=== PATIENT | male | born 1950 | race Caucasian/White ===

== ENCOUNTER 2017-04-21 09:18 | Emergency (ER) | payer OTHER ==
[~2017-04-21] VITALS: Ht 167.6 cm; Wt 119.7 kg
[2017-04-21 09:22] VITALS: BP 152/93
[2017-04-21] MEDS ORDERED: ALPR0.5T2 PO (09:30)
[2017-04-21] MEDS ORDERED: TRAZ-286 PO (09:30)
[2017-04-21] MEDS ORDERED: ACET-2869 PO (09:30)
--- NOTE | 2017-04-21 09:50 | NUR ---
66m bib self presents with medication refill for xanax and norco. Pt sts he ran out of medication approx 2-3 days. Pt sts he has been taking xanax and norco for the past 7 years. Pt sts he has a doctors apt on 04/24/17. Pt reports that he has 7/10 constant generalized body pain. Pt denies SI or HI. Pt sts he is feeling anxious and has been "crying all night". Pt is aox4 with steady gait. RR are even and unlabored. Er md gardner by bedside examining pt. NAD. Awaiting discharge. All needs met at this time.
[2017-04-21 10:02] VITALS: BP 152/93
--- NOTE | 2017-04-21 10:02 | NUR ---
Patient discharged with v/s stable. Written and verbal after care instructions given and explained. Patient alert, oriented and verbalized understanding of instructions. Ambulatory with steady gait. All questions addressed prior to discharge. ID band removed. Patient advised to follow up with PMD. Rx of xanax and norco given. Patient educated on indication of medication including possible reaction and side effects. Opportunity to ask questions provided and answered.
== END 2017-04-21 10:02 | disposition home or self-care (01) ==
LOC: MED 09:18
DX: Z76.0 Encounter for issue of repeat prescription (principal); F41.9 Anxiety disorder, unspecified; M79.1 Myalgia; Z90.49 Acquired absence of other specified parts of digestive tract; Z79.899 Other long term (current) drug therapy
CPT/HCPCS: 99283

== ENCOUNTER 2017-11-16 08:36 | Emergency (ER) | payer OTHER ==
[~2017-11-16] VITALS: Ht 167.6 cm; Wt 117.9 kg
[~2017-11-16 08:36] MED LIST: ACET-2869 PO; ALPR0.5T2 PO; TRAZ-343 PO
--- NOTE | 2017-11-16 08:36 | NUR ---
Patient BIBA BLS, transferred to bed 10. RN evaluating patient at bedside.
[2017-11-16 08:50] VITALS: BP 142/88
--- NOTE | 2017-11-16 08:56 | NUR ---
67 YO M BIBA W/ C/O SEVERE PAIN / THAT IS BURNING AND RADIATES FROM HIS BILATERAL LOWER BACK TO HIS RIGHT BUTTOCK, RIGHT CALF, AND RIGHT FOOT/TOES. PT REPORTS THIS PAIN IS FROM HIS FIBROMYALGIA, WHICH IS CHRONIC SINCE CHILDHOOD, BUT IT IS SO SEVERE THAT HE TOOK 3 HYDROCODONE AND THEY WERE NOT EFFECTIVE. PT DENIES N/V. SKIN IS WARM AND DRY TO THE TOUCH, WNL. CAP REFILL LESS THAN 3 SECONDS, PEDAL/POPLITEAL PULSES PALPABLE, STRONG +2. NO EDEMA. PT AAOX4, GCS 15, CMS INTACT. RR EVEN AND UNLABORED, LUNG PALMER BILATERALLY CLEAR. ABD SOFT, NON-TENDER. BOWEL SOUNDS ACTIVE X 4 QUADRANTS. LAST BM YESTERDAY. PT REPORTS HE IS AMBULATORY W/ STEADY GAIT, BUT UNWITNESSED AT THIS TIME R/T ARRIVING VIA EMS. WILL RE-EVALUATE GAIT PRN. ER MD NOTIFIED OF PT STATUS. SAFETY PRECAUTIONS IN PLACE. PT NEEDS MET. BEDSIDE MONITORING INITIATED. WILL CONTINUE TO MONITOR.
[2017-11-16] MEDS ORDERED: ONDANSETRON 4 MG ODT PO ONE (09:05)
[2017-11-16] MEDS ORDERED: MORPHINE SULFATE 10 MG/ML SYR IM ONE (09:05)
[2017-11-16] MEDS ORDERED: MORPHINE SULFATE 4 MG/ML SYR IM ONE (09:15)
--- NOTE | 2017-11-16 09:20 | NUR ---
Dr. Osorio evaluating patient at bedside.
--- NOTE | 2017-11-16 09:52 | NUR ---
DR ARRIETA AT BEDSIDE.
[2017-11-16] MEDS ORDERED: KETOROLAC 60 MG/2 ML VIAL IM ONE (10:25)
--- NOTE | 2017-11-16 11:14 | NUR ---
DR ARRIETA AT BEDSIDE
--- NOTE | 2017-11-16 11:48 | NUR ---
Dr. Vanessa re-evaluating patient at bedside.
--- NOTE | 2017-11-16 11:58 | NUR ---
Patient discharged with v/s stable. Written and verbal after care instructions given and explained. Patient verbalized understanding. Wheel Chair Assisted with to [facility] AWAITING SONS ARRIVAL. All questions addressed prior to discharge. Advised to follow up with PMD.
[2017-11-16 11:59] VITALS: BP 154/76
== END 2017-11-16 11:58 | disposition home or self-care (01) ==
LOC: MED 08:36
DX: M54.31 Sciatica, right side (principal); R03.0 Elevated blood-pressure reading, without diagnosis of hypertension; M79.7 Fibromyalgia; Z79.899 Other long term (current) drug therapy
CPT/HCPCS: 96372; 99284; J1885; J2270; S0119

== ENCOUNTER 2018-04-26 10:48 | Emergency (ER) | payer OTHER ==
[~2018-04-26] VITALS: Ht 167.6 cm; Wt 108.9 kg
[~2018-04-26 10:48] MED LIST changes: -ACET-2869 PO; +HYDR-5122 PO
[2018-04-26 10:50] VITALS: BP 150/98
--- NOTE | 2018-04-26 11:40 | NUR ---
no answer in er lobby/ restrooms / or outside er entrance; he was seen leaving by staff.
== END 2018-04-26 11:48 | disposition left against medical advice (07) ==
LOC: MED 10:48
DX: F41.9 Anxiety disorder, unspecified (principal); Z53.21 Procedure and treatment not carried out due to patient leaving prior to being seen by health care provider